=== PATIENT | male | born 1960 | race Caucasian/White ===

== ENCOUNTER 2023-10-23 11:44 | Emergency (ER) | payer MEDICAID ==
[~2023-10-23] VITALS: Ht 177.8 cm; Wt 80.0 kg
[2023-10-23 11:49] VITALS: O2SAT 100
[2023-10-23] MEDS ORDERED: FUROSEMIDE 40MG TABLET PO ONE (13:15)
[2023-10-23] MEDS ORDERED: DOXYCYCLINE HYCLATE 100MG CAPSULE PO ONE (13:15)
[2023-10-23] MEDS ORDERED: TAMSULOSIN HCL 0.4MG SR CAPSULE PO ONE (13:15)
[2023-10-23] MEDS ORDERED: HYDROCODONE/ACETAMINOPHEN 5/325MG TABLET PO ONE (13:30)
[2023-10-23] MEDS ORDERED: METOPROLOL TARTRATE 50MG TABLET PO ONE (13:30)
[2023-10-23] MEDS ORDERED: RIVAROXABAN 10 MG TABLET PO SCH (13:45)
[2023-10-23] MEDS ORDERED: METOPROLOL TARTRATE 50MG TABLET PO NR (14:30)
[2023-10-23] MEDS ORDERED: HYDROCODONE/ACETAMINOPHEN 5/325MG TABLET PO NR (14:30)
[2023-10-23] MEDS ORDERED: FUROSEMIDE 40MG TABLET PO NR (14:30)
[2023-10-23] MEDS ORDERED: RIVAROXABAN 20 MG TABLET PO SCH (14:30)
[2023-10-23] MEDS ORDERED: DOXYCYCLINE HYCLATE 100MG CAPSULE PO NR (14:30)
[2023-10-23] MEDS ORDERED: TAMSULOSIN HCL 0.4MG SR CAPSULE PO NR (14:30)
[2023-10-23 16:10] LABS: BASOPHILS % 1.1 % (0.0-2.0); EOSINOPHILS % 3.7 % (0.0-5.0); HEMATOCRIT. 32.4 % (42.0-52.0); HEMOGLOBIN. 10.3 g/dL (14.0-18.0); LYMPHOCYTES % 20.2 % (20.0-50.0); MEAN CORPUSCULAR HEMOGLOBIN 28.7 pg (28.0-32.0); MEAN CORPUSCULAR HGB CONC 31.9 g/dL (31.0-37.0); MEAN CORPUSCULAR VOLUME 89.9 fL (80.0-94.0); MEAN PLATELET VOLUME 8.7 fl (7.4-10.4); MONOCYTES % 11.6 % (2.0-8.0); NEUTROPHILS % 63.4 % (40.0-76.0); PLATELET 158 x1000/uL (130-400); RED CELL DISTRIBUTION WIDTH 16.4 % (11.6-14.6); WHITE BLOOD COUNT 4.7 x1000/uL (4.5-11.0)
[2023-10-23] MEDS ORDERED: METOPROLOL TARTRATE 5MG/5ML VIAL IV NR (16:15)
[2023-10-23 16:23] LABS: ALANINE AMINOTRANSFERASE 18 IU/L (10-49); ALBUMIN 3.6 g/dL (3.2-4.8); ASPARTATE AMINOTRANSFERASE 36 IU/L (<34); BILIRUBIN TOTAL 1.3 mg/dL (0.1-1.0); CALCIUM 8.8 mg/dL (8.7-10.4); CARBON DIOXIDE 28 mEq/L (21-32); CHLORIDE 102 mEq/L (98-107); CREATININE 0.7 mg/dL (0.6-1.3); GLUCOSE 91 mg/dL (70-105); POTASSIUM 3.7 mEq/L (3.5-5.1); PROTEIN TOTAL 7.6 g/dL (6.0-8.3); SODIUM 137 mEq/L (136-145); UREA NITROGEN BLOOD 24 mg/dL (9-23)
[2023-10-23] MEDS ORDERED: ONDANSETRON HCL 4MG/2ML INJ IV PRN (17:00)
[2023-10-23] MEDS ORDERED: MAGNESIUM/ALUMINUM HYDROXIDE/SIMETHICONE 30ML UDC PO PRN (17:00)
[2023-10-23] MEDS ORDERED: GUAIFENESIN 200MG/10ML SUGAR FREE UDC PO PRN (17:00)
[2023-10-23] MEDS ORDERED: ACETAMINOPHEN 325MG TABLET PO PRN ×2 (17:00)
[2023-10-23] MEDS ORDERED: IPRATROPIUM/ALBUTEROL 0.5-3(2.5)MG/3ML NEB HHN PRN (17:00)
[2023-10-23] MEDS ORDERED: DIPHENHYDRAMINE 50MG/ML VIAL IV PRN (17:00)
[2023-10-23] MEDS ORDERED: FURO-151 MT (17:01)
[2023-10-23] MEDS ORDERED: RIVA20TA MT (17:01)
[2023-10-23] MEDS ORDERED: TAMS-11 MT (17:01)
[2023-10-23] MEDS ORDERED: METO25TA6 MT (17:01)
[2023-10-23 17:12] VITALS: BP 138/82; PULSE 82; RESP 18; TEMP 98.1
[2023-10-23] MEDS ORDERED: FAMOTIDINE 20MG TABLET PO SCH (21:00)
== END 2023-10-23 19:24 | disposition home or self-care (01) ==
LOC: ER 12:01 → CANBEDREQ 10-25 21:22
DX: I48.91 Unspecified atrial fibrillation (principal); I83.009 Varicose veins of unspecified lower extremity with ulcer of unspecified site; F10.229 Alcohol dependence with intoxication, unspecified; Y90.0 Blood alcohol level of less than 20 mg/100 ml
CPT/HCPCS: 80053; 85025; 36415; 99285; Z7610

== ENCOUNTER 2023-10-29 02:59 | Emergency (ER) | payer MEDICAID ==
[~2023-10-29] VITALS: Ht 172.7 cm; Wt 95.0 kg
[~2023-10-29 02:59] MED LIST: FURO-151 MT; METO25TA6 MT; RIVA20TA MT; TAMS-11 MT
[2023-10-29 03:17] VITALS: BP 143/92; PULSE 94; RESP 18; TEMP 98.4; O2SAT 100
[2023-10-29 09:32] LABS: BASOPHILS % 0.7 % (0.0-2.0); EOSINOPHILS % 5.4 % (0.0-5.0); HEMOGLOBIN. 9.4 g/dL (14.0-18.0); LYMPHOCYTES % 23.8 % (20.0-50.0); MEAN CORPUSCULAR HEMOGLOBIN 29.3 pg (28.0-32.0); MEAN CORPUSCULAR HGB CONC 32.5 g/dL (31.0-37.0); MEAN CORPUSCULAR VOLUME 90.2 fL (80.0-94.0); MEAN PLATELET VOLUME 8.1 fl (7.4-10.4); MONOCYTES % 11.9 % (2.0-8.0); NEUTROPHILS % 58.2 % (40.0-76.0); PLATELET 132 x1000/uL (130-400); RED BLOOD CELL COUNT 3.21 mill/uL (4.7-6.1); RED CELL DISTRIBUTION WIDTH 16.6 % (11.6-14.6); WHITE BLOOD COUNT 2.6 x1000/uL (4.5-11.0)
[2023-10-29 10:31] LABS: ALANINE AMINOTRANSFERASE 15 IU/L (10-49); ALBUMIN 3.4 g/dL (3.2-4.8); ASPARTATE AMINOTRANSFERASE 30 IU/L (<34); BILIRUBIN TOTAL 0.7 mg/dL (0.1-1.0); CALCIUM 8.6 mg/dL (8.7-10.4); CARBON DIOXIDE 23 mEq/L (21-32); CHLORIDE 110 mEq/L (98-107); CREATININE 0.6 mg/dL (0.6-1.3); GLUCOSE 107 mg/dL (70-105); POTASSIUM 3.6 mEq/L (3.5-5.1); PROTEIN TOTAL 7.8 g/dL (6.0-8.3); SODIUM 140 mEq/L (136-145); TROPONIN I HIGH SENSITIVITY 6 ng/L (3.0-53); UREA NITROGEN BLOOD 16 mg/dL (9-23)
== END 2023-10-29 14:18 | disposition left against medical advice (07) ==
LOC: ER 02:59
DX: R06.02 Shortness of breath (principal); Z00.00 Encounter for general adult medical examination without abnormal findings
CPT/HCPCS: 36415; 71045; 80053; 83880; 84484; 85025; 93005; 99285

== ENCOUNTER 2023-10-30 00:57 | Emergency (ER) | payer MEDICAID ==
[~2023-10-30] VITALS: Ht 177.8 cm; Wt 91.0 kg
[2023-10-30 01:00] VITALS: PULSE 109
[2023-10-30] MEDS ORDERED: VANCOMYCIN 1G PREMIX 200 ML IV SCH (01:30)
[2023-10-30] MEDS ORDERED: ACETAMINOPHEN 325MG TABLET PO ONE (01:30)
[2023-10-30] MEDS ORDERED: FUROSEMIDE 40MG/4ML VIAL IVP ONE (01:30)
[2023-10-30] MEDS ORDERED: ASPIRIN 81MG TABLET PO ONE (02:00)
[2023-10-30] MEDS ORDERED: AZITHROMYCIN 500MG/250ML 250 ML IV ONE (03:00)
[2023-10-30 04:06] LABS: BASOPHILS % 0.8 % (0.0-2.0); EOSINOPHILS % 2.9 % (0.0-5.0); LYMPHOCYTES % 16.8 % (20.0-50.0); MEAN CORPUSCULAR HEMOGLOBIN 28.6 pg (28.0-32.0); MEAN CORPUSCULAR VOLUME 89.5 fL (80.0-94.0); MEAN PLATELET VOLUME 7.8 fl (7.4-10.4); MONOCYTES % 9.5 % (2.0-8.0); PLATELET 123 x1000/uL (130-400); RED BLOOD CELL COUNT 3.13 mill/uL (4.7-6.1); RED CELL DISTRIBUTION WIDTH 17.4 % (11.6-14.6); WHITE BLOOD COUNT 3.5 x1000/uL (4.5-11.0)
[2023-10-30 04:28] LABS: ALANINE AMINOTRANSFERASE 15 IU/L (10-49); ALBUMIN 3.4 g/dL (3.2-4.8); ASPARTATE AMINOTRANSFERASE 30 IU/L (<34); CALCIUM 8.4 mg/dL (8.7-10.4); CARBON DIOXIDE 26 mEq/L (21-32); CHLORIDE 109 mEq/L (98-107); CREATININE 0.6 mg/dL (0.6-1.3); GLUCOSE 94 mg/dL (70-105); POTASSIUM 3.3 mEq/L (3.5-5.1); PROTEIN TOTAL 7.9 g/dL (6.0-8.3); SODIUM 141 mEq/L (136-145); TROPONIN I HIGH SENSITIVITY 8 ng/L (3.0-53); UREA NITROGEN BLOOD 15 mg/dL (9-23)
[2023-10-30] MEDS ORDERED: ACETAMINOPHEN 325MG TABLET PO NR (08:45)
== END 2023-10-30 14:01 | disposition left against medical advice (07) ==
LOC: ER 00:57 → EDBEDREQTM 02:06 → EDBEDREQ 02:06 → ER 14:01 → CANBEDREQ 14:01
DX: I50.9 Heart failure, unspecified (principal); I48.91 Unspecified atrial fibrillation; I87.8 Other specified disorders of veins; L03.116 Cellulitis of left lower limb; L03.115 Cellulitis of right lower limb; R91.8 Other nonspecific abnormal finding of lung field; J44.9 Chronic obstructive pulmonary disease, unspecified; I11.0 Hypertensive heart disease with heart failure; Z88.8 Allergy status to other drugs, medicaments and biological substances
CPT/HCPCS: 36415; 71045; 80053; 83880; 84484; 85025; 93005; 93970; 99285

== ENCOUNTER 2023-10-31 07:53 | Emergency (ER) | payer MEDICAID ==
[~2023-10-31] VITALS: Ht 177.8 cm; Wt 109.0 kg
[2023-10-31 08:00] VITALS: BP 106/84; PULSE 116; RESP 16; TEMP 98.4; O2SAT 99
[2023-10-31] MEDS ORDERED: METOPROLOL TARTRATE 50MG TABLET PO ONE (08:45)
[2023-10-31] MEDS ORDERED: FUROSEMIDE 40MG TABLET PO ONE (08:45)
[2023-10-31 08:59] LABS: ALANINE AMINOTRANSFERASE 14 IU/L (10-49); ALBUMIN 3.3 g/dL (3.2-4.8); ASPARTATE AMINOTRANSFERASE 28 IU/L (<34); BILIRUBIN TOTAL 0.7 mg/dL (0.1-1.0); CALCIUM 8.5 mg/dL (8.7-10.4); CARBON DIOXIDE 25 mEq/L (21-32); CHLORIDE 106 mEq/L (98-107); CREATININE 0.6 mg/dL (0.6-1.3); GLUCOSE 129 mg/dL (70-105); POTASSIUM 3.3 mEq/L (3.5-5.1); PROTEIN TOTAL 7.5 g/dL (6.0-8.3); SODIUM 140 mEq/L (136-145); TROPONIN I HIGH SENSITIVITY 9 ng/L (3.0-53); UREA NITROGEN BLOOD 16 mg/dL (9-23)
[2023-10-31 09:10] LABS: INR 1.2
[2023-10-31 09:11] LABS: BASOPHILS % 0.5 % (0.0-2.0); EOSINOPHILS % 5.2 % (0.0-5.0); HEMOGLOBIN. 8.6 g/dL (14.0-18.0); LYMPHOCYTES % 16.9 % (20.0-50.0); MEAN CORPUSCULAR HEMOGLOBIN 28.8 pg (28.0-32.0); MEAN CORPUSCULAR HGB CONC 31.9 g/dL (31.0-37.0); MEAN CORPUSCULAR VOLUME 90.5 fL (80.0-94.0); MEAN PLATELET VOLUME 7.8 fl (7.4-10.4); MONOCYTES % 10.6 % (2.0-8.0); NEUTROPHILS % 66.8 % (40.0-76.0); PLATELET 107 x1000/uL (130-400); RED BLOOD CELL COUNT 2.99 mill/uL (4.7-6.1); RED CELL DISTRIBUTION WIDTH 17.2 % (11.6-14.6); WHITE BLOOD COUNT 2.8 x1000/uL (4.5-11.0)
== END 2023-10-31 10:02 | disposition left against medical advice (07) ==
LOC: ER 07:57
DX: I48.91 Unspecified atrial fibrillation (principal); I50.9 Heart failure, unspecified; Z98.890 Other specified postprocedural states; Z88.8 Allergy status to other drugs, medicaments and biological substances
CPT/HCPCS: 36415; 80053; 83880; 84484; 85025; 93005; 99284

== ENCOUNTER 2023-11-25 23:55 | Emergency (ER) | payer MEDICAID ==
[~2023-11-25] VITALS: Ht 177.8 cm; Wt 77.0 kg
[2023-11-26] VITALS: BP 106/59; PULSE 95; RESP 16; TEMP 98.2; O2SAT 99
[2023-11-26] MEDS ORDERED: BACL-141 MT (00:05)
[2023-11-26] MEDS ORDERED: ACET-2708 MT (00:05)
[2023-11-26] MEDS: ACETAMINOPHEN 325MG TABLET PO ONE (00:22)
== END 2023-11-26 00:46 | disposition home or self-care (01) ==
LOC: ER 23:55
DX: M79.606 Pain in leg, unspecified (principal); I11.0 Hypertensive heart disease with heart failure; I50.9 Heart failure, unspecified; I48.91 Unspecified atrial fibrillation; I83.009 Varicose veins of unspecified lower extremity with ulcer of unspecified site; G89.29 Other chronic pain; Z79.899 Other long term (current) drug therapy
CPT/HCPCS: 99283; Z7610

== ENCOUNTER 2023-11-27 02:30 | Emergency (ER) | payer MEDICAID ==
[~2023-11-27] VITALS: Ht 167.6 cm; Wt 96.0 kg
[~2023-11-27 02:30] MED LIST changes: +ACET-2708 MT; +BACL-141 MT
[2023-11-27 02:33] VITALS: BP 128/84; PULSE 118; RESP 18; TEMP 98.4; O2SAT 98
[2023-11-27 03:03] LABS: BASOPHILS % 0.6 % (0.0-2.0); EOSINOPHILS % 6.6 % (0.0-5.0); HEMOGLOBIN. 9.2 g/dL (14.0-18.0); LYMPHOCYTES % 26.8 % (20.0-50.0); MEAN CORPUSCULAR HEMOGLOBIN 28.4 pg (28.0-32.0); MEAN PLATELET VOLUME 8.2 fl (7.4-10.4); MONOCYTES % 15.1 % (2.0-8.0); NEUTROPHILS % 50.9 % (40.0-76.0); PLATELET 117 x1000/uL (130-400); RED BLOOD CELL COUNT 3.25 mill/uL (4.7-6.1); RED CELL DISTRIBUTION WIDTH 17.5 % (11.6-14.6); WHITE BLOOD COUNT 3.3 x1000/uL (4.5-11.0)
[2023-11-27 03:10] LABS: ALANINE AMINOTRANSFERASE 25 IU/L (10-49); ALBUMIN 3.7 g/dL (3.2-4.8); ASPARTATE AMINOTRANSFERASE 53 IU/L (<34); CALCIUM 8.7 mg/dL (8.7-10.4); CARBON DIOXIDE 25 mEq/L (21-32); CHLORIDE 107 mEq/L (98-107); CREATININE 0.6 mg/dL (0.6-1.3); GLUCOSE 96 mg/dL (70-105); POTASSIUM 3.7 mEq/L (3.5-5.1); PROTEIN TOTAL 7.6 g/dL (6.0-8.3); SODIUM 140 mEq/L (136-145); TROPONIN I HIGH SENSITIVITY 9 ng/L (3.0-53); UREA NITROGEN BLOOD 19 mg/dL (9-23)
[2023-11-27 03:18] LABS: INR 1.2; PARTIAL THROMBOPLASTIN TIME 32.6 sec (23.4-31.0); PROTHROMBIN TIME 13.2 sec (9.6-11.0)
[2023-11-27 03:19] LABS: DIFFERENTIAL COMMENT 1
== END 2023-11-27 13:23 | disposition left against medical advice (07) ==
LOC: ER 02:30
DX: R07.89 Other chest pain (principal); Z53.21 Procedure and treatment not carried out due to patient leaving prior to being seen by health care provider
CPT/HCPCS: 36415; 71045; 80053; 84484; 85025; 93005; 99281

== ENCOUNTER 2024-02-16 03:31 | Emergency (ER) | payer MEDICAID ==
[~2024-02-16] VITALS: Ht 177.8 cm; Wt 92.0 kg
[~2024-02-16 03:31] MED LIST changes: -ACET-2708 MT; +FOLI-43 PO; +THIA100T72 PO
[2024-02-16 03:41] VITALS: PULSE 107; RESP 20
[2024-02-16 03:45] VITALS: BP 125/104; TEMP 98; O2SAT 97
[2024-02-16 04:30] LABS: BASOPHILS % 0.7 % (0.0-2.0); EOSINOPHILS % 1.9 % (0.0-5.0); HEMATOCRIT. 33.6 % (42.0-52.0); HEMOGLOBIN. 11.2 g/dL (14.0-18.0); LYMPHOCYTES % 26.8 % (20.0-50.0); MEAN CORPUSCULAR HGB CONC 33.3 g/dL (31.0-37.0); MEAN PLATELET VOLUME 7.9 fl (7.4-10.4); MONOCYTES % 11.7 % (2.0-8.0); NEUTROPHILS % 58.9 % (40.0-76.0); PLATELET 188 x1000/uL (130-400); RED BLOOD CELL COUNT 3.87 mill/uL (4.7-6.1); RED CELL DISTRIBUTION WIDTH 16.4 % (11.6-14.6); WHITE BLOOD COUNT 6.2 x1000/uL (4.5-11.0)
[2024-02-16 04:40] LABS: CHLORIDE 104 mEq/L (98-107); POTASSIUM 3.6 mEq/L (3.5-5.1); SODIUM 136 mEq/L (136-145)
[2024-02-16 04:41] LABS: CARBON DIOXIDE 27 mEq/L (21-32)
[2024-02-16 04:46] LABS: CREATININE 0.8 mg/dL (0.6-1.3); GLUCOSE 98 mg/dL (70-105); UREA NITROGEN BLOOD 20 mg/dL (9-23)
== END 2024-02-16 08:08 | disposition left against medical advice (07) ==
LOC: ER 03:54
DX: R00.2 Palpitations (principal); Z53.21 Procedure and treatment not carried out due to patient leaving prior to being seen by health care provider
CPT/HCPCS: 36415; 80048; 85025; 93005

== ENCOUNTER 2024-02-16 21:27 | Emergency (ER) | payer MEDICAID ==
[2024-02-16 21:56] VITALS: PULSE 77
== END 2024-02-16 23:09 | disposition left against medical advice (07) ==
LOC: ER 21:27
DX: R00.2 Palpitations (principal); Z53.21 Procedure and treatment not carried out due to patient leaving prior to being seen by health care provider

== ENCOUNTER 2024-03-13 08:23 | Emergency (ER) | payer MEDICAID ==
[~2024-03-13] VITALS: Ht 177.8 cm; Wt 100.0 kg
[~2024-03-13 08:23] MED LIST changes: +SPIR25TA6 MT
[2024-03-13 08:37] VITALS: BP 134/75; PULSE 95; RESP 30; TEMP 98.9; O2SAT 99
[2024-03-13] MEDS ORDERED: BO1 TP (23:33)
== END 2024-03-13 09:22 | disposition left against medical advice (07) ==
LOC: ER 08:23
DX: M79.605 Pain in left leg (principal); M79.604 Pain in right leg; Z53.21 Procedure and treatment not carried out due to patient leaving prior to being seen by health care provider

== ENCOUNTER 2024-03-13 20:27 | Emergency (ER) | payer MEDICAID ==
[~2024-03-13] VITALS: Ht 175.3 cm; Wt 78.0 kg
[2024-03-13 20:44] VITALS: TEMP 98.4; O2SAT 96
[2024-03-13 22:24] LABS: BASOPHILS % 0.8 % (0.0-2.0); EOSINOPHILS % 6.6 % (0.0-5.0); HEMATOCRIT. 25.9 % (42.0-52.0); HEMOGLOBIN. 8.6 g/dL (14.0-18.0); LYMPHOCYTES % 20.4 % (20.0-50.0); MEAN CORPUSCULAR HGB CONC 33.1 g/dL (31.0-37.0); MEAN CORPUSCULAR VOLUME 87.6 fL (80.0-94.0); MEAN PLATELET VOLUME 7.8 fl (7.4-10.4); MONOCYTES % 10.1 % (2.0-8.0); NEUTROPHILS % 62.1 % (40.0-76.0); PLATELET 128 x1000/uL (130-400); RED BLOOD CELL COUNT 2.96 mill/uL (4.7-6.1); RED CELL DISTRIBUTION WIDTH 17.4 % (11.6-14.6)
[2024-03-13 22:33] LABS: CHLORIDE 107 mEq/L (98-107); POTASSIUM 3.9 mEq/L (3.5-5.1); SODIUM 139 mEq/L (136-145)
[2024-03-13 22:34] LABS: CARBON DIOXIDE 27 mEq/L (21-32)
[2024-03-13 22:35] LABS: CALCIUM 8.8 mg/dL (8.7-10.4)
[2024-03-13 22:39] LABS: CREATININE 0.8 mg/dL (0.6-1.3); GLUCOSE 97 mg/dL (70-105); UREA NITROGEN BLOOD 23 mg/dL (9-23)
[2024-03-13] MEDS ORDERED: BO1 TP (23:33)
[2024-03-14 00:35] VITALS: BP 125/86; PULSE 101; RESP 18
[2024-03-14] MEDS: FUROSEMIDE 20MG TABLET PO STA (00:35)
[2024-03-14] MEDS: HYDROCODONE/ACETAMINOPHEN 5/325MG TABLET PO ONE (00:35)
== END 2024-03-14 03:50 | disposition home or self-care (01) ==
LOC: ER 20:37
DX: I87.8 Other specified disorders of veins (principal); L30.9 Dermatitis, unspecified; I50.9 Heart failure, unspecified; Z88.8 Allergy status to other drugs, medicaments and biological substances; Z88.0 Allergy status to penicillin; Z79.899 Other long term (current) drug therapy; Z98.890 Other specified postprocedural states
CPT/HCPCS: 36415; 80048; 85025; 99285